=== PATIENT | female | born 1945 ===

== ENCOUNTER 2023-01-07 07:30 | Inpatient (IN) | payer OTHER ==
[~2023-01-07] VITALS: Ht 152.4 cm; Wt 78.0 kg
[2023-01-07] MEDS ORDERED: NAMENDA10 MG PO (08:30)
[2023-01-07] MEDS ORDERED: LIPITOR20 MG PO (08:30)
[2023-01-07] MEDS ORDERED: BYSTOLIC5 MG PO (08:30)
[2023-01-07] MEDS ORDERED: FENOFIBRATE145 MG PO (08:30)
[2023-01-07] MEDS ORDERED: HORIZANT300 MG PO (08:31)
[2023-01-07] MEDS ORDERED: RIVASTIGMINE3 MG PO (08:31)
[2023-01-13] MEDS ORDERED: GABAPENTIN300 M2 (11:43)
[2023-01-14] MEDS ORDERED: PERCOCET 5-3251 EACH PO (08:27)
[2023-01-14] MEDS ORDERED: CIPRO500 MG PO (08:27)
[2023-01-14] MEDS ORDERED: ELIQUIS2.5 MG PO (08:27)
== END 2023-01-15 17:38 | DRG 470 ==
LOC: SURG 01-13 07:00 → O/R 01-13 07:40 → OB/GYN 01-13 15:27 → SURG 01-14 14:28
PROVIDERS: ADMIT Orthopaedic Surgery; ATTEND Orthopaedic Surgery
PROC: 0SRC0J9 Replacement of Right Knee Joint with Synthetic Substitute, Cemented, Open Approach (ICD-10-PCS; principal; 2023-01-13 07:00)
DX: M17.11 Unilateral primary osteoarthritis, right knee (principal); M22.11 Recurrent subluxation of patella, right knee

== ENCOUNTER 2024-03-11 12:45 | Inpatient (IN) | payer OTHER ==
[~2024-03-11] VITALS: Ht 152.4 cm; Wt 81.6 kg
[~2024-03-11 12:45] MED LIST: BYSTOLIC5 MG PO; CIPRO500 MG PO; ELIQUIS2.5 MG PO; FENOFIBRATE145 MG PO; GABAPENTIN300 M2; HORIZANT300 MG PO; LIPITOR20 MG PO; NAMENDA10 MG PO; PERCOCET 5-3251 EACH PO; RIVASTIGMINE3 MG PO
[2024-03-11 13:57] VITALS: BP 129/70
[2024-03-11 14:31] LABS: RH POSITIVE
[2024-03-15] MEDS ORDERED: VANCOMYCIN HCL 1,000 MG VIAL IV ONE (09:45)
[2024-03-15] MEDS ORDERED: TRANEXAMIC ACID 100MG/1ML (1000MG) AMPUL IV ONE ×2 (09:45)
[2024-03-15] MEDS ORDERED: MORPHINE SULFATE 4 MG/ML VIAL IV ONE ×3 (09:45→14:15)
[2024-03-15] MEDS ORDERED: RIVASTIGMINE1.5 MG (10:23)
[2024-03-15] MEDS ORDERED: FAMOTIDINE20 MG (10:23)
[2024-03-15] MEDS ORDERED: ONDANSETRON HCL 2 MG/ML VIAL IV PRN (11:30)
[2024-03-15] MEDS ORDERED: MORPHINE SULFATE 4 MG/ML CARTRIDGE IV PRN (11:30)
[2024-03-15] MEDS ORDERED: SODIUM CHLORIDE 0.45 % 1,000 ML IV SCH (11:30)
[2024-03-15] MEDS ORDERED: OxyCODONE HCL 5 MG TABLET (ROXICODONE) PO PRN (11:30)
[2024-03-15] MEDS ORDERED: ACETAMINOPHEN 500 MG GEL..CAP PO SCH (12:00)
[2024-03-15 16:42] VITALS: BP 126/75; O2SAT 95
[2024-03-15] MEDS ORDERED: GABAPENTIN 300 MG CAPSULE PO SCH (17:00)
[2024-03-15] MEDS ORDERED: MEMANTINE HCL 10 MG TABLET PO SCH (17:00)
[2024-03-15] MEDS ORDERED: SIMVASTATIN 20 MG TABLET PO SCH (17:00)
[2024-03-15] MEDS ORDERED: VANCOMYCIN HCL 1,000 MG in 0.9 % SODIUM CHLORIDE 250 ML IV SCH (21:00)
[2024-03-16 01:08] VITALS: BP 118/68; O2SAT 96
[2024-03-16 07:36] LABS: HEMATOCRIT 38.1 % (36.0-45.00); HEMOGLOBIN 12.9 g/dL (12.0-15.00); MEAN CELL VOLUME 92.3 fL (80.00-100.00); MEAN CORPUSCULAR HEMOGLOBIN 31.2 pg (27.00-32.0); MEAN CORPUSCULAR HGB CONC 33.8 g/dl (32.0-36.0); PLATELET COUNT 179 K/uL (150-450); RED BLOOD COUNT 4.13 M/uL (4.00-6.00); RED CELL DISTRIBUTION WIDTH 12.9 % (11.5-14.5)
[2024-03-16 08:00] VITALS: BP 113/78; O2SAT 99
[2024-03-16] MEDS ORDERED: PERCOCET 5-3251 EACH PO (08:24)
[2024-03-16] MEDS ORDERED: ELIQUIS2.5 MG PO (08:24)
[2024-03-16] MEDS ORDERED: CIPRO500 MG PO (08:24)
[2024-03-16] MEDS ORDERED: APIXABAN 2.5 MG TABLET PO SCH (09:00)
[2024-03-16] MEDS ORDERED: BYSTOLIC 5 MG PO SCH (09:00)
[2024-03-16] MEDS ORDERED: SENNOSIDES 1 TAB TABLET PO SCH (09:00)
[2024-03-16 15:02] LABS: ALBUMIN 3.5 gm/dL (3.4-5.0); BILIRUBIN TOTAL 0.55 mg/dL (0.3-1.2); CALCIUM 9.8 mg/dL (8.5-10.1); CREATININE SERUM 0.76 mg/dL (0.55-1.02); GFR 73.79; GLOBULINA 3.2 G/DL (2.4-3.5); POTASSIUM 4.18 mEq/L (3.5-5.1); TOTAL PROTEIN 6.7 gm/dL (6.4-8.2)
[2024-03-16] MEDS ORDERED: Cyanocobalamin/Mecobalamin 1 TAB.SL SL SCH (18:01)
[2024-03-16] MEDS ORDERED: VITAMIN B COMPLEX 1 EACH PO SCH (18:01)
[2024-03-16 18:03] VITALS: BP 158/69; O2SAT 98
[2024-03-17] VITALS: BP 107/75; O2SAT 96
[2024-03-17 07:37] LABS: HEMATOCRIT 39.3 % (36.0-45.00); HEMOGLOBIN 13.4 g/dL (12.0-15.00); MEAN CELL VOLUME 91.7 fL (80.00-100.00); MEAN CORPUSCULAR HEMOGLOBIN 31.3 pg (27.00-32.0); MEAN CORPUSCULAR HGB CONC 34.1 g/dl (32.0-36.0); PLATELET COUNT 172 K/uL (150-450); RED BLOOD COUNT 4.29 M/uL (4.00-6.00); RED CELL DISTRIBUTION WIDTH 13.1 % (11.5-14.5)
[2024-03-17 08:26] VITALS: BP 141/69; O2SAT 98
[2024-03-17] MEDS ORDERED: IRON FUM,PS/FOLIC ACID/VITC/B3 1 CAP CAPSULE PO SCH (09:00)
[2024-03-17 16:00] VITALS: BP 150/75; O2SAT 97
== END 2024-03-17 20:50 | DRG 470 ==
LOC: O/R 03-15 08:35 → SURH 03-15 12:45
PROVIDERS: ADMIT Orthopaedic Surgery; ATTEND Orthopaedic Surgery
PROC: 0SUD07Z Supplement Left Knee Joint with Autologous Tissue Substitute, Open Approach (ICD-10-PCS; 2024-03-15)
PROC: 0MNP0ZZ Release Left Knee Bursa and Ligament, Open Approach (ICD-10-PCS; 2024-03-15)
PROC: 0SRD0J9 Replacement of Left Knee Joint with Synthetic Substitute, Cemented, Open Approach (ICD-10-PCS; principal; 2024-03-15 18:45)
DX: M17.12 Unilateral primary osteoarthritis, left knee (principal); D62 Acute posthemorrhagic anemia; M22.12 Recurrent subluxation of patella, left knee; E66.9 Obesity, unspecified; I10 Essential (primary) hypertension